=== PATIENT | male | born 1950 | race Caucasian/White ===

== ENCOUNTER 2017-07-05 12:18 | Emergency (ER) | payer MEDICARE, BC ==
[2017-07-05 13:40] LABS: Hematocrit 47.7 % (42.0-52.0); Mean Platelet Volume 8.4 fL (7.4-10.4); Red Blood Cell (RBC) Count 4.86 mill/uL (4.70-6.10); White Blood Cell (WBC) Count 5.3 thou/uL (4.8-10.8)
[2017-07-05 14:00] LABS: ALT (SGPT) 48 U/L (8-55); AST (SGOT) 28 U/L (5-34); Alkaline Phosphatase 100 U/L (40-150); Anion Gap 8 mmol/L (10-20); BUN (Urea Nitrogen) 10 mg/dL (8.4-25.7); Band 4 % (5-11); Bilirubin, Total 0.8 mg/dL (0.2-1.2); Calc. Creatinine Clearance 0 mL/min (70-130); Calcium 9.6 mg/dL (7.8-10.44); Carbon Dioxide 32 mmol/L (23-31); Chloride 101 mmol/L (98-107); Estimated GFR-MDRD Greater than 90; Globulin 3.5 g/dL (2.4-3.5); Lipase 80 U/L (8-78); Neutrophil 26 % (42-75); Protein, Total 7.2 g/dL (5.8-8.1); Reactive Lymphocytes 15 % (0-10)
--- NOTE | 2017-07-05 14:31 | ULT ---
RIGHT UPPER QUADRANT ULTRASOUND: Date: 07/05/17 INDICATION: Pain. FINDINGS: There is fatty infiltration of the liver. There is layered sludge within the gallbladder. No sonographic Chacon's sign is reported. Common bile duct measures 6.5 mm. Visualized pancreas is unremarkable. Right kidney measures 12.6 x 6.3 x 6.7 cm. There is a suspected 8.0 cm cyst extending off of the ante rior margin of the inferior pole of the right kidney. No hydronephrosis is evident. IMPRESSION: 1. Fatty liver. 2. Gallbladder sludge without sonographic evidence of acute cholecystitis. 3. Suspected 8.0 cm inferior pole right renal cyst. POS: [facility]
== END 2017-07-05 14:39 | disposition home or self-care (01) ==
LOC: ERS 12:18
DX: K85.90 Acute pancreatitis without necrosis or infection, unspecified (principal); E11.9 Type 2 diabetes mellitus without complications; F17.210 Nicotine dependence, cigarettes, uncomplicated; Z79.84 Long term (current) use of oral hypoglycemic drugs; Z79.899 Other long term (current) drug therapy
CPT/HCPCS: 36415; 76705; 80053; 83690; 85025

== ENCOUNTER 2019-02-04 11:34 | Outpatient (CLI) | payer MEDICARE, BC ==
[2019-02-04] MEDS ORDERED: Iopamidol 370 76% 100 ML VIAL ONE (13:45)
--- NOTE | 2019-02-04 13:48 | CT ---
CT ABDOMEN AND PELVIS WITH CONTRAST: 02/04/19 HISTORY: Periumbilical abdominal pain. History of pancreatitis. COMPARISON: None. FINDINGS: Lung bases are clear. No pericardial effusion. Exam is limited due to extensive motion. There is a very heterogeneous micronodular appearance of the liver with numerous indwelling calcifications. There are calcifications of the spleen. Multiple renal hypodensities measure greater than fluid attenuation not definitively a cyst. Small fa t containing paraumbilical hernia. Mild diverticular disease of the descending colon without active current inflammation. No dilated lo ops of large or small bowel. Some faint peripancreatic inflammation around the pancreatic head which is slightly bulbous. No defin ite mass is appreciated. Celiac trunk and superior mesenteric arteries are patent as well as the splenic vein. Bilateral pars interarticularis defects at L5 with grade I/II anterolisthesis. No significant retroperitoneal or per iaortic adenopathy. Gallbladder is unremarkable. IMPRESSION: 1. Low grade edema around the pancreatic head suggests acute pancreatitis. There is mild edema of the pancreatic head which is somewhat bulbous. No definite mass. 2. Multiple renal hypodensities although greater than fluid attenuation not definitely cysts. Fo llow-up renal ultrasound in 3 to 6 months is recommended. 3. Mild diverticular disease of the descending colon without active current inflammation. 4. Heterogeneous enhancement of the liver without a nodular appearance. The internal enhancement does have a picture of cirrhosis. Work up recommended. 5. Bilateral pars interarticularis defects of L5 with grade I/II anterolisthesis. 6. Small fat containing periumbilical hernia. POS: [facility]
== END 2019-02-04 11:35 | disposition home or self-care (01) ==
LOC: CT 11:34
PROVIDERS: ATTEND Physician Assistant Medical
DX: R10.33 Periumbilical pain (principal); R19.4 Change in bowel habit; R60.0 Localized edema; M43.16 Spondylolisthesis, lumbar region; K42.9 Umbilical hernia without obstruction or gangrene; K57.30 Diverticulosis of large intestine without perforation or abscess without bleeding; N28.89 Other specified disorders of kidney and ureter
CPT/HCPCS: 36415; 74177; 80053; 82150; 83690; 85025; Q9967

== ENCOUNTER 2019-04-27 07:27 | Day surgery (SDC) | payer MEDICARE, BC ==
[2019-04-24 15:30] VITALS: BMI 28.0
[2019-04-27 07:46] LABS: Hemoglobin 16.2 g/dL (14.0-18.0); Mean Corpuscular HGB CONC 35.2 g/dL (32.0-36.0); Mean Corpuscular Hemoglobin 32.8 pg (27.0-31.0); Mean Platelet Volume 9.2 fL (7.4-10.4); Platelet Count 114 thou/uL (130-400); RBC Distribution Width 12.6 % (11.5-14.5); Red Blood Cell (RBC) Count 4.95 mill/uL (4.70-6.10); White Blood Cell (WBC) Count 6.1 thou/uL (4.8-10.8)
[2019-04-27 07:49] LABS: INR-International Normal Ratio 1.3; Prothrombin Time 16.4 SEC (12.0-14.7)
[2019-04-27 08:34] LABS: Band 3 % (5-11); Eosinophils 5 % (0-10); Lymphocytes 60 % (21-51); MDiff Complete? YES; Monocytes 3 % (0-10); Neutrophil 19 % (42-75); Nucleated RBC 1 % (0); Platelet Morphology Comment Appears Decreased; RBC Morphology Normal; Reactive Lymphocytes 10 % (0-10)
[2019-04-27 08:50] VITALS: BP 140/78; TEMP 97.5
[2019-04-27] MEDS ORDERED: Fentanyl 100 MCG/2 ML VIAL ONE (09:00)
[2019-04-27] MEDS ORDERED: Midazolam HCl 2 mg/2 ml Vial ONE (09:00)
[2019-04-27] MEDS ORDERED: Sodium Bicarbonate 2.5 MEQ/5 ML VIAL ONE (09:00)
--- NOTE | 2019-04-27 13:51 | ULT ---
EXAM: US Hepatic Bx PROVIDED CLINICAL HISTORY: Cirrhosis, elevated liver function tests. COMPARISON: None TECHNIQUE: The procedure including the risks and complications were explained to the patient, and informed conse nt was obtained. Patient was placed on the sonography table in the supine position. Limited sonographic evaluation of the liver was performed. An area overlying the midline upper abdomen was ma rked, and the area was meticulously prepped and draped in usual sterile fashion. Conscious sedation was performed with the intravenous administration of 50 mcg of fentanyl and 1 mg of Versed. The patie nt was monitored throughout the procedure for approximately 30 minutes without complication. The epigastric region was meticulously prepped and draped in usual sterile fashion. The skin and subc utaneous tissues were infiltrated with buffered 1% lidocaine for local anesthesia. A small skin incision was made. Utilizing concurrent real time ultrasound guidance, a 17-gauge guide needle was ad vanced into the most peripheral aspect of the left hepatic lobe. Utilizing coaxial technique, a single 18-gauge core needle biopsy specimen was obtained. The inner stylette was removed. Specimen wa s collected. The introducer needle was then removed, hemostasis was achieved with direct pressure. Direct pressure was applied for approximately 10 minutes. Follow-up imaging demonstrates no perihepat ic fluid or findings to suggest a hematoma at biopsy site. Patient's vital signs remained stable during the procedure as well as postprocedure. A dry sterile dr essing was placed at puncture site. Patient was transported to radiology nurses holding area for further monitoring prior to discharge. IMPRESSION: 1. Increased echogenicity of the liver suggesting diffuse fatty infiltration. 2. Technically successful ultrasound-guided random left hepatic lobe biopsy. Pathology is currently p ending.
== END 2019-04-27 13:00 | disposition home or self-care (01) ==
LOC: ULT 07:27
PROVIDERS: ATTEND Physician Assistant Medical
DX: K74.60 Unspecified cirrhosis of liver (principal); K73.9 Chronic hepatitis, unspecified; K76.0 Fatty (change of) liver, not elsewhere classified; E11.9 Type 2 diabetes mellitus without complications; Z79.84 Long term (current) use of oral hypoglycemic drugs; Z79.899 Other long term (current) drug therapy; Z87.891 Personal history of nicotine dependence
CPT/HCPCS: 36415; 47000; 76942; 85025; 85610; 85730; 88307; 88313; J2250; J3010

== ENCOUNTER 2019-06-24 07:29 | Outpatient (CLI) | payer MEDICARE, BC ==
--- NOTE | 2019-06-24 14:40 | CT ---
CT PULMONARY LUNG SCAN: HISTORY: Nicotine abuse. A 40 year smoker who quit 8 years ago. FINDINGS: The lungs are clear of any infiltrative process. There is a calcified granuloma within the lingula. N o suspicious nodules identified. No significant mediastinal adenopathy is appreciated. Some mild coronary calcifications are present. No significant axillary adenopathy. There are calcified hilar lymph nodes seen. The visualized liver parenchyma shows no focal findings. IMPRESSION: 1. Lung-RADS category 1 - negative. Annual screening followup recommended. 2. Lung-RADS category S - this subcategory is given for the presence of coronary calcifications. POS: [facility]
--- NOTE | 2019-06-25 08:17 | ULT ---
Ultrasound of the abdominal aorta INDICATION: Screening evaluation for abdominal aortic aneurysm FINDINGS: Proximal abdominal aorta: Patent: AP diameter is 2.5 cm. Mediolateral diameter is 2.7 cm. Mid abdominal aorta: Patent. AP diameter of is 1.85 cm. Mediolateral diameter is 2.2 cm. Distal abdominal aorta: Patent. AP diameter is 1.7 cm. The mediolateral diameters 1.8 cm. Left common iliac artery: Patent. AP diameter is 1.3 cm. Right common iliac artery: Patent. AP diameter is 1.2 cm. 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 Mild ectasia of the left and right common iliac artery.
== END 2019-06-24 07:30 | disposition home or self-care (01) ==
LOC: ULT 07:29
PROVIDERS: ATTEND Family Medicine
DX: Z13.6 Encounter for screening for cardiovascular disorders (principal); Z87.891 Personal history of nicotine dependence; I25.10 Atherosclerotic heart disease of native coronary artery without angina pectoris; I77.811 Abdominal aortic ectasia; I77.89 Other specified disorders of arteries and arterioles
CPT/HCPCS: 76775; G0297

== ENCOUNTER 2019-12-08 09:31 | Outpatient (CLI) | payer MEDICARE, BC ==
--- NOTE | 2019-12-08 11:52 | MRI ---
MRI ABDOMEN WITH AND WITHOUT IV CONTRAST: Date: 12/08/2019 HISTORY: Cirrhosis of liver, hemochromatosis. FINDINGS: The liver, spleen, pancreas, adrenal glands, and gallbladder are normal. No abnormal biliary or pancr eatic ductal dilatation is seen. There are bilateral renal cysts, the largest on the right measuring 8.2 cm and on the left measuring 4.3 cm. No abnormal postcontrast enhancement is seen. No free fluid or lymphadenopathy is identified. There is no evidence of aneurysmal dilatation of the abdominal aorta. Bone marrow signal is normal. IMPRESSION: 1. No evidence of hepatic mass. 2. Bilateral renal cysts. POS: [facility]
== END 2019-12-08 09:32 | disposition home or self-care (01) ==
LOC: SCSMRI 09:31
PROVIDERS: ATTEND Internal Medicine Gastroenterology
DX: K74.60 Unspecified cirrhosis of liver (principal); E83.119 Hemochromatosis, unspecified; N28.1 Cyst of kidney, acquired
CPT/HCPCS: 74183; 82565

== ENCOUNTER 2020-09-28 10:52 | Outpatient (CLI) | payer MEDICARE, BC | END 2020-09-28 10:53 | disposition home or self-care (01) | LOC: BICCT 10:52 | PROVIDERS: ATTEND Family Medicine | DX: Z12.2 Encounter for screening for malignant neoplasm of respiratory organs (principal); Z87.891 Personal history of nicotine dependence | CPT/HCPCS: 71271 ==

== ENCOUNTER 2022-04-21 16:31 | Observation (INO) | payer MEDICARE, BC ==
[~2022-04-21 16:31] MED LIST: Iopamidol-370 76% 500 ML 1 ML ONE
[2022-04-21 17:23] LABS: #Eosinphils 0.1 thou/uL (0.0-0.7); #Lymphocytes 2.5 thou/uL (1.20-3.40); #Monocytes 0.7 thou/uL (0.11-0.59); #Neutrophils 3.1 thou/uL (1.40-6.50); %Basophils 0.7 % (0.0-1.0); %Lymphocytes 38.7 % (21.0-51.0); %Monocytes 10.8 % (0.0-10.0); %Neutrophils 47.8 % (42.0-75.0); Hemoglobin 16.1 g/dL (14.0-18.0); Mean Corpuscular HGB CONC 32.2 g/dL (32.0-36.0); Mean Corpuscular Hemoglobin 31.9 pg (27.0-31.0); Mean Corpuscular Volume 98.9 fL (78.0-98.0); Platelet Count 132 thou/uL (130-400); RBC Distribution Width 12.7 % (11.5-14.5); Red Blood Cell (RBC) Count 5.05 mill/uL (4.70-6.10); White Blood Cell (WBC) Count 6.5 thou/uL (4.8-10.8)
[2022-04-21 17:30] LABS: INR-International Normal Ratio 1.3; PTT 35.8 sec (22.9-36.1); Prothrombin Time 16.1 sec (12.0-14.7)
[2022-04-21 17:46] LABS: ALT (SGPT) 21 U/L (8-55); AST (SGOT) 23 U/L (5-34); Albumin 4.2 g/dL (3.4-4.8); Alkaline Phosphatase 68 U/L (40-110); Anion Gap 13 mmol/L (10-20); BUN (Urea Nitrogen) 19 mg/dL (8.4-25.7); Bilirubin, Total 0.8 mg/dL (0.2-1.2); Calc. Creatinine Clearance 0 mL/min (70-130); Calcium 9.8 mg/dL (7.8-10.44); Carbon Dioxide 26 mmol/L (23-31); Chloride 101 mmol/L (98-107); Estimated GFR 93; Globulin 3.7 g/dL (2.4-3.5); Glucose 157 mg/dL (83-110); Potassium 4.3 mmol/L (3.5-5.1); Protein, Total 7.9 g/dL (5.8-8.1); Sodium 136 mmol/L (136-145)
[2022-04-21] MEDS ORDERED: Tranexamic Acid 1,000 MG in Sodium Chloride 0.9% 100 ML IVPB SCH (19:15)
[2022-04-21] MEDS ORDERED: Ondansetron PF 4 MG/2 ML Vial ONE (19:24)
[2022-04-21] MEDS ORDERED: Tranexamic Acid 1,000 MG/10 ML VIAL ONE (19:40)
[2022-04-21] MEDS ORDERED: Acetaminophen 325 MG TAB PO PRN (19:44)
[2022-04-21] MEDS ORDERED: Ondansetron PF 4 MG/2 ML Vial IVP PRN (19:44)
[2022-04-21] MEDS ORDERED: Dextrose 5% in Water 1,000 ML IV PRN (19:48)
[2022-04-21] MEDS ORDERED: HumaLOG 300 UNITS/3 ML VIAL SC PRN (19:48)
[2022-04-21] MEDS ORDERED: Dextrose 50% Abboject 50 ML SYRINGE SLOW IVP PRN (19:48)
[2022-04-21 22:38] VITALS: BMI 25.5
[2022-04-21] MEDS ORDERED: Zolpidem Tartrate 5 MG TAB PO PRN (22:56)
[2022-04-21 23:44] LABS: SARS-CoV-2 NAA Rapid Test Not Detected (NotDetected)
[2022-04-22 06:18] LABS: #Eosinphils 0.1 thou/uL (0.0-0.7); #Lymphocytes 2.5 thou/uL (1.20-3.40); #Monocytes 0.7 thou/uL (0.11-0.59); #Neutrophils 2.2 thou/uL (1.40-6.50); %Basophils 0.6 % (0.0-1.0); %Eosinophils 2.5 % (0.0-10.0); %Lymphocytes 45.7 % (21.0-51.0); %Monocytes 12.4 % (0.0-10.0); %Neutrophils 38.9 % (42.0-75.0); Hemoglobin 13.9 g/dL (14.0-18.0); Mean Corpuscular Hemoglobin 31.6 pg (27.0-31.0); Mean Corpuscular Volume 98.7 fL (78.0-98.0); Mean Platelet Volume 9.2 fL (7.4-10.4); Platelet Count 125 thou/uL (130-400); RBC Distribution Width 12.5 % (11.5-14.5); Red Blood Cell (RBC) Count 4.39 mill/uL (4.70-6.10); White Blood Cell (WBC) Count 5.6 thou/uL (4.8-10.8)
[2022-04-22 06:40] LABS: Anion Gap 11 mmol/L (10-20); BUN (Urea Nitrogen) 16 mg/dL (8.4-25.7); Calc. Creatinine Clearance 109 mL/min (70-130); Carbon Dioxide 25 mmol/L (23-31); Chloride 104 mmol/L (98-107); Estimated GFR 95; Glucose 103 mg/dL (83-110); Sodium 136 mmol/L (136-145)
[2022-04-22] MEDS: HumaLOG 300 UNITS/3 ML VIAL SC PRN (19:22)
[2022-04-23 05:54] LABS: #Eosinphils 0.2 thou/uL (0.0-0.7); #Lymphocytes 2.6 thou/uL (1.20-3.40); #Neutrophils 3.4 thou/uL (1.40-6.50); %Basophils 0.6 % (0.0-1.0); %Eosinophils 2.4 % (0.0-10.0); %Lymphocytes 36.4 % (21.0-51.0); %Monocytes 13.4 % (0.0-10.0); %Neutrophils 47.2 % (42.0-75.0); Hemoglobin 15.2 g/dL (14.0-18.0); Mean Corpuscular HGB CONC 32.2 g/dL (32.0-36.0); Mean Corpuscular Hemoglobin 31.7 pg (27.0-31.0); Mean Corpuscular Volume 98.5 fL (78.0-98.0); Mean Platelet Volume 8.7 fL (7.4-10.4); Platelet Count 132 thou/uL (130-400); RBC Distribution Width 12.4 % (11.5-14.5); Red Blood Cell (RBC) Count 4.78 mill/uL (4.70-6.10); White Blood Cell (WBC) Count 7.1 thou/uL (4.8-10.8)
[2022-04-23 06:14] LABS: Anion Gap 12 mmol/L (10-20); BUN (Urea Nitrogen) 16 mg/dL (8.4-25.7); Calc. Creatinine Clearance 104 mL/min (70-130); Calcium 9.5 mg/dL (7.8-10.44); Carbon Dioxide 25 mmol/L (23-31); Chloride 102 mmol/L (98-107); Estimated GFR 94; Glucose 141 mg/dL (83-110); Potassium 4.1 mmol/L (3.5-5.1); Sodium 135 mmol/L (136-145)
[2022-04-23] MEDS: HumaLOG 300 UNITS/3 ML VIAL SC PRN ×2 (06:20→11:55)
[2022-04-23 12:30] VITALS: BP 131/82; TEMP 98.2
[2022-04-23] MEDS ORDERED: FLU VACC QS2022-23(6MOS UP)/PF 60 MCG/0.5 ML SYRINGE IM ONE (23:45)
== END 2022-04-23 11:55 | disposition home or self-care (01) ==
LOC: ERS 16:31 → SURG B 19:38
PROVIDERS: ADMIT Internal Medicine; ATTEND Internal Medicine
DX: J35.8 Other chronic diseases of tonsils and adenoids (principal); E11.9 Type 2 diabetes mellitus without complications; R59.0 Localized enlarged lymph nodes; Z87.891 Personal history of nicotine dependence; Z79.84 Long term (current) use of oral hypoglycemic drugs; Z79.899 Other long term (current) drug therapy; Z20.822 Contact with and (suspected) exposure to COVID-19
CPT/HCPCS: 70491; 80048 ×2; 80053; 82962 ×2; 83735; 84484; 85025 ×3; 85610; 85730; 86850; 86900; 86901; 93005; 96374; 96375; 99285; G0378 ×3; U0002; 36415; 36416; J1815; J2405; Q9967

== ENCOUNTER 2022-05-07 09:59 | Outpatient (CLI) | payer MEDICARE, BC ==
[2022-05-07 12:23] LABS: Hemoglobin 14.7 g/dL (13.5-17.5)
[2022-05-07 12:34] LABS: Anion Gap 16 mmol/L (10-20); BUN (Urea Nitrogen) 21 mg/dL (8.4-25.7); Calc. Creatinine Clearance 0 mL/min (70-130); Calcium 9.4 mg/dL (7.8-10.44); Carbon Dioxide 23 mmol/L (23-31); Chloride 101 mmol/L (98-107); Estimated GFR 93; Glucose 294 mg/dL (83-110); Sodium 136 mmol/L (136-145)
== END 2022-05-07 10:00 | disposition home or self-care (01) ==
LOC: LABBT 09:59
PROVIDERS: ATTEND Specialist
DX: Z01.818 Encounter for other preprocedural examination (principal); J35.8 Other chronic diseases of tonsils and adenoids
CPT/HCPCS: 80048; 85014; 85018; 93005; 93010

== ENCOUNTER 2022-05-10 06:16 | Day surgery (SDC) | payer MEDICARE, BC ==
[2022-05-09 08:58] VITALS: BMI 26.4
[2022-05-10] MEDS ORDERED: Ketamine 50 MG/ML (10ML VIAL) ONE (08:15)
[2022-05-10] MEDS ORDERED: fentaNYL Citrate/PF 100 MCG/2 ML SYRINGE ONE (08:15)
[2022-05-10] MEDS ORDERED: SUGAMMADEX SODIUM 200 MG/2 ML VIAL ONE (08:21)
[2022-05-10] MEDS ORDERED: Esmolol 100 MG/10 ML VIAL ONE (08:30)
[2022-05-10] MEDS ORDERED: Ondansetron PF 4 MG/2 ML Vial ONE (08:30)
[2022-05-10] MEDS ORDERED: Glycopyrrolate 0.2 MG/ML 5 ML SYRINGE ONE (08:30)
[2022-05-10] MEDS ORDERED: Rocuronium Bromide 10 MG/ML (10ML VIAL) ONE (08:30)
[2022-05-10] MEDS ORDERED: Dexamethasone 20 MG/5 ML VIAL ONE (08:30)
[2022-05-10] MEDS ORDERED: PROPOFOL 200 MG/20 ML VIAL ONE (08:30)
[2022-05-10] MEDS ORDERED: EPINEPHrine 1 MG/ML AMP ONE (08:33)
[2022-05-10] MEDS ORDERED: Ferric Subsulfate (ASTRINGYN) 8 GM VIAL ONE (08:48)
[2022-05-10] MEDS ORDERED: Hydrocodone-Acetamin 15 ML UDCUP ONE (09:45)
[2022-05-10] MEDS ORDERED: Morphine 2 MG/ML VIAL ONE (09:50)
== END 2022-05-10 11:00 | disposition home or self-care (01) ==
LOC: SDC 06:16
PROVIDERS: ATTEND Specialist
PROC: 0CTPXZZ Resection of Tonsils, External Approach (ICD-10-PCS; principal; 2022-05-10)
PROC: 0W963ZX Drainage of Neck, Percutaneous Approach, Diagnostic (ICD-10-PCS; 2022-05-10)
PROC: 0CJS8ZZ Inspection of Larynx, Via Natural or Artificial Opening Endoscopic (ICD-10-PCS; 2022-05-10)
DX: C09.9 Malignant neoplasm of tonsil, unspecified (principal); E11.9 Type 2 diabetes mellitus without complications; Z87.891 Personal history of nicotine dependence; Z79.84 Long term (current) use of oral hypoglycemic drugs; Z79.899 Other long term (current) drug therapy
CPT/HCPCS: 10021; 31526; 42826; 82962; J2270; 36416; 88173; 88305; 88341; 88342; J0171; J1100; J2405; J2704

== ENCOUNTER 2022-05-25 08:00 | Outpatient (CLI) | payer MEDICARE, BC | END 2022-05-25 08:01 | disposition home or self-care (01) | LOC: PET 08:00 | PROVIDERS: ATTEND Radiology Radiation Oncology | DX: C09.9 Malignant neoplasm of tonsil, unspecified (principal); C77.0 Secondary and unspecified malignant neoplasm of lymph nodes of head, face and neck; C77.2 Secondary and unspecified malignant neoplasm of intra-abdominal lymph nodes; C78.7 Secondary malignant neoplasm of liver and intrahepatic bile duct; C79.51 Secondary malignant neoplasm of bone | CPT/HCPCS: 78815; A9552 ==

== ENCOUNTER 2022-06-30 12:10 | Emergency (ER) | payer MEDICARE, BC | END 2022-06-30 12:48 | disposition home or self-care (01) | LOC: ERS 12:10 | DX: I10 Essential (primary) hypertension (principal) | CPT/HCPCS: 99281 ==

== ENCOUNTER 2023-03-08 12:29 | Emergency (ER) | payer MEDICARE, BC ==
[~2023-03-08 12:29] MED LIST changes: -Iopamidol-370 76% 500 ML 1 ML ONE; +Iopamidol-370 76% 500 ML MDV (1 ML CHARGE) ONE
[2023-03-08] MEDS ORDERED: Ondansetron PF 4 MG/2 ML Vial ONE (13:49)
[2023-03-08 13:51] LABS: #Eosinphils 0.2 thou/uL (0.0-0.7); #Monocytes 0.7 thou/uL (0.11-0.59); %Basophils 0.6 % (0.0-1.0); %Lymphocytes 19.9 % (21.0-51.0); %Neutrophils 60.9 % (42.0-75.0); Hematocrit 39.6 % (42.0-52.0); Hemoglobin 12.9 g/dL (14.0-18.0); Mean Corpuscular HGB CONC 32.6 g/dL (32.0-36.0); Mean Corpuscular Hemoglobin 32.2 pg (27.0-31.0); Mean Corpuscular Volume 98.8 fl (78.0-98.0); Mean Platelet Volume 10.4 fL (7.4-10.4); Platelet Count 150 10x3/uL (130-400); RBC Distribution Width 14.6 % (11.5-14.5); Red Blood Cell (RBC) Count 4.01 mill/uL (4.70-6.10); White Blood Cell (WBC) Count 4.9 10x3/uL (4.8-10.8)
[2023-03-08 14:13] LABS: ALT (SGPT) 93 U/L (8-55); AST (SGOT) 81 U/L (5-34); Alkaline Phosphatase 720 U/L (40-110); Anion Gap 12 mmol/L (10-20); BUN (Urea Nitrogen) 18 mg/dL (8.4-25.7); Bilirubin, Total 0.6 mg/dL (0.2-1.2); Calc. Creatinine Clearance 0 mL/min (70-130); Calcium 9.7 mg/dL (7.8-10.44); Carbon Dioxide 31 mmol/L (23-31); Chloride 97 mmol/L (98-107); Estimated GFR 98; Globulin 4.7 g/dL (2.4-3.5); Glucose 235 mg/dL (83-110); Potassium 4.7 mmol/L (3.5-5.1); Protein, Total 7.7 g/dL (5.8-8.1); Sodium 135 mmol/L (136-145)
[2023-03-08 14:17] LABS: Troponin I Less than 0.010 ng/mL (< 0.028)
== END 2023-03-08 16:26 | disposition home or self-care (01) ==
LOC: ERS 12:29
DX: I71.9 Aortic aneurysm of unspecified site, without rupture (principal); C79.49 Secondary malignant neoplasm of other parts of nervous system; R94.5 Abnormal results of liver function studies; C14.0 Malignant neoplasm of pharynx, unspecified; E11.9 Type 2 diabetes mellitus without complications; Z87.891 Personal history of nicotine dependence; Z79.4 Long term (current) use of insulin; Z79.899 Other long term (current) drug therapy
CPT/HCPCS: 36415; 71045; 71275; 74174; 80053; 84484; 85025; 93005; 96374; J2405; Q9967

== ENCOUNTER 2023-03-27 09:26 | Emergency (ER) | payer MEDICARE, BC ==
[2023-03-27 11:31] LABS: #Eosinphils 0.1 thou/uL (0.0-0.7); #Monocytes 0.9 thou/uL (0.11-0.59); #Neutrophils 4.7 thou/uL (1.40-6.50); %Basophils 0.6 % (0.0-1.0); %Eosinophils 0.9 % (0.0-10.0); %Lymphocytes 11.3 % (21.0-51.0); %Monocytes 13.3 % (0.0-10.0); %Neutrophils 70.7 % (42.0-75.0); Hemoglobin 12.3 g/dL (14.0-18.0); Mean Corpuscular HGB CONC 32.4 g/dL (32.0-36.0); Mean Corpuscular Hemoglobin 32.5 pg (27.0-31.0); Mean Corpuscular Volume 100.3 fl (78.0-98.0); Mean Platelet Volume 10.9 fL (7.4-10.4); Platelet Count 144 10x3/uL (130-400); RBC Distribution Width 15.7 % (11.5-14.5); Red Blood Cell (RBC) Count 3.79 mill/uL (4.70-6.10); White Blood Cell (WBC) Count 6.6 10x3/uL (4.8-10.8)
[2023-03-27 11:57] LABS: ALT (SGPT) 112 U/L (8-55); AST (SGOT) 104 U/L (5-34); Alkaline Phosphatase 911 U/L (40-110); Anion Gap 14 mmol/L (10-20); BUN (Urea Nitrogen) 23 mg/dL (8.4-25.7); Bilirubin, Total 1.3 mg/dL (0.2-1.2); Calc. Creatinine Clearance 0 mL/min (70-130); Calcium 9.3 mg/dL (7.8-10.44); Carbon Dioxide 25 mmol/L (23-31); Chloride 96 mmol/L (98-107); Estimated GFR 97; Globulin 4.5 g/dL (2.4-3.5); Glucose 242 mg/dL (83-110); Potassium 4.6 mmol/L (3.5-5.1); Protein, Total 7.5 g/dL (5.8-8.1); Sodium 130 mmol/L (136-145)
[2023-03-27 12:51] LABS: Troponin I Less than 0.010 ng/mL (< 0.028)
[2023-03-27 15:12] LABS: Bacteria/HPF None Seen HPF (None Seen); Bilirubin Negative (Negative); Blood, Urine Negative (Negative); CAUTI Indications for Culture Dysuria,urgency,freq; Clarity Clear (Clear); Glucose, Urine (Dipstick) 30 mg/dL (Negative); Ketone, Urine Negative (Negative); Leukocyte Negative Leu/uL (Negative); Nitrite Negative (Negative); Protein, Urine (Dipstick) 10 mg/dL (Neg-Trace); RBC/HPF 0-3 HPF (0-3); Specific Gravity, Urine 1.012 (1.002-1.036); Squamous Epithelial None Seen HPF (0-3); Urobilinogen Normal mg/dL (Less than 2); WBC/HPF 0-3 HPF (0-3)
[2023-03-27 15:13] LABS: Urine Culture Reflex No No
== END 2023-03-27 15:30 | disposition home or self-care (01) ==
LOC: ERS 09:26
DX: I95.1 Orthostatic hypotension (principal); E11.9 Type 2 diabetes mellitus without complications
CPT/HCPCS: 36415; 80053; 81001; 84484; 85025; 93005

== ENCOUNTER 2023-03-28 09:31 | Inpatient (IN) | payer MEDICARE, BC ==
[2023-03-28] MEDS ORDERED: Iopamidol-370 76% 500 ML MDV (1 ML CHARGE) ONE (09:58)
[2023-03-28 10:38] LABS: #Eosinphils 0.1 thou/uL (0.0-0.7); #Monocytes 0.6 thou/uL (0.11-0.59); #Neutrophils 3.3 thou/uL (1.40-6.50); %Basophils 0.8 % (0.0-1.0); %Eosinophils 1.4 % (0.0-10.0); %Lymphocytes 15.5 % (21.0-51.0); %Monocytes 12.8 % (0.0-10.0); %Neutrophils 67.4 % (42.0-75.0); Hematocrit 37.9 % (42.0-52.0); Hemoglobin 12.6 g/dL (14.0-18.0); Mean Corpuscular HGB CONC 33.2 g/dL (32.0-36.0); Mean Corpuscular Hemoglobin 32.6 pg (27.0-31.0); Mean Corpuscular Volume 98.2 fl (78.0-98.0); Mean Platelet Volume 11.2 fL (7.4-10.4); Platelet Count 141 10x3/uL (130-400); RBC Distribution Width 15.7 % (11.5-14.5); Red Blood Cell (RBC) Count 3.86 mill/uL (4.70-6.10); White Blood Cell (WBC) Count 4.8 10x3/uL (4.8-10.8)
[2023-03-28 11:01] LABS: ALT (SGPT) 111 U/L (8-55); AST (SGOT) 116 U/L (5-34); Albumin 2.9 g/dL (3.4-4.8); Alkaline Phosphatase 933 U/L (40-110); Anion Gap 12 mmol/L (10-20); BUN (Urea Nitrogen) 20 mg/dL (8.4-25.7); Bilirubin, Total 1.8 mg/dL (0.2-1.2); Calc. Creatinine Clearance 0 mL/min (70-130); Calcium 9.2 mg/dL (7.8-10.44); Carbon Dioxide 29 mmol/L (23-31); Chloride 98 mmol/L (98-107); Estimated GFR 98; Globulin 4.5 g/dL (2.4-3.5); Glucose 233 mg/dL (83-110); Lipase 18 U/L (8-78); Magnesium 1.9 mg/dL (1.6-2.6); Potassium 4.2 mmol/L (3.5-5.1); Protein, Total 7.4 g/dL (5.8-8.1); Sodium 135 mmol/L (136-145)
[2023-03-28 12:45] LABS: Troponin I Less than 0.010 ng/mL (< 0.028)
[2023-03-28 14:02] LABS: Lactic Acid 1.5 mmol/L (0.5-2.2)
[2023-03-28 17:44] VITALS: BMI 21.7
[2023-03-28] MEDS: Dextrose 5 % And 0.9 % NaCl 1,000 ML IV SCH (17:50)
[2023-03-28] MEDS ORDERED: HumaLOG 300 UNITS/3 ML VIAL SC PRN (18:45)
[2023-03-28] MEDS ORDERED: TETANUS, DIPHTHERIA TOX,ADULT (TDVAX) 0.5 ML VIAL IM ONE (18:45)
[2023-03-28] MEDS ORDERED: Ondansetron PF 4 MG/2 ML Vial IVP PRN (18:45)
[2023-03-28] MEDS ORDERED: Glucagon 1 MG/ML KIT IM PRN (18:45)
[2023-03-28] MEDS ORDERED: hydrALAZINE 20 MG/ML VIAL SLOW IVP PRN (18:45)
[2023-03-28] MEDS ORDERED: traMADol HCl 50 MG TAB PO PRN (18:45)
[2023-03-28] MEDS ORDERED: Dextrose 50% Abboject 50 ML SYRINGE SLOW IVP PRN (18:45)
[2023-03-28] MEDS ORDERED: Dextrose 5% in Water 1,000 ML IV PRN (18:45)
[2023-03-28] MEDS ORDERED: Sodium Chloride 0.9% 1,000 ML IV SCH (18:45)
[2023-03-28] MEDS ORDERED: Ipratropium/Albuterol 3 ML NEB NEB PRN (18:45)
[2023-03-28] MEDS ORDERED: Morphine 2 MG/ML VIAL SLOW IVP PRN (18:45)
[2023-03-28] MEDS ORDERED: Piperacillin/Tazobactam 3.375 GM in Sodium Chloride 0.9% 100 ML IVPB SCH (19:15)
[2023-03-28] MEDS: Acetaminophen 325 MG TAB PO SCH ×2 (19:43→23:29)
[2023-03-28] MEDS: Famotidine/PF 20 mg/2ml Vial SLOW IVP SCH (20:44)
[2023-03-28] MEDS ORDERED: Bupivacaine 0.25% HCL 30 ML VIAL ONE (20:46)
[2023-03-28] MEDS ORDERED: EPINEPHrine 1 MG/ML AMP ONE (20:46)
[2023-03-28] MEDS ORDERED: fentaNYL PF 100 MCG/2 ML SYRINGE ONE (21:54)
[2023-03-28] MEDS ORDERED: Dexmedetomidine 200 MCG/2 ML VIAL ONE (21:55)
[2023-03-28] MEDS ORDERED: Ketamine 50 MG/ML (10ML VIAL) ONE (21:55)
[2023-03-28] MEDS ORDERED: Dexamethasone 20 MG/5 ML VIAL ONE (22:16)
[2023-03-28] MEDS ORDERED: ePHEDrine Sulfate 50 MG/10 ML VIAL ONE (22:16)
[2023-03-28] MEDS ORDERED: Ondansetron PF 4 MG/2 ML Vial ONE (22:16)
[2023-03-28] MEDS ORDERED: PHENYLEPHRINE-NS 100 MCG/ML 10 ML SYRINGE ONE (22:16)
[2023-03-28] MEDS ORDERED: Lidocaine 1% PF 5 ML VIAL ONE (22:16)
[2023-03-28] MEDS ORDERED: Rocuronium Bromide 10 MG/ML (10ML VIAL) ONE (22:16)
[2023-03-28] MEDS ORDERED: PROPOFOL 200 MG/20 ML VIAL ONE (22:16)
[2023-03-28] MEDS ORDERED: NEOSTIGMINE 3 MG/3 ML SYR 3 MG/3 ML SYRINGE ONE (22:16)
[2023-03-28] MEDS ORDERED: Glycopyrrolate 0.2 MG/ML 5 ML SYRINGE ONE (22:16)
[2023-03-28] MEDS: Piperacillin/Tazobactam 3.375 GM in Sodium Chloride 0.9% 100 ML IVPB SCH (23:28)
[2023-03-28] MEDS ORDERED: Promethazine HCl 25 MG/ML VIAL IM PRN (23:49)
[2023-03-28] MEDS ORDERED: Ondansetron HCl/PF 4 MG/2 ML Vial IVP PRN (23:49)
[2023-03-28] MEDS ORDERED: HYDROmorphone 2 MG/ML VIAL SLOW IVP PRN (23:49)
[2023-03-28] MEDS ORDERED: PACU-Morphine 4MG/ML VIAL SLOW IVP PRN (23:49)
[2023-03-28] MEDS ORDERED: Morphine Sulfate 2 MG/ML SYRINGE SLOW IVP PRN (23:49)
[2023-03-28] MEDS ORDERED: fentaNYL 50 mcg/mL 1 mL Vial ONE (23:57)
[2023-03-29] MEDS ORDERED: Morphine 2 MG/ML VIAL SLOW IVP PRN (00:23)
[2023-03-29] MEDS: Piperacillin/Tazobactam 3.375 GM in Sodium Chloride 0.9% 100 ML IVPB SCH ×2 (00:31→08:39)
[2023-03-29] MEDS: Dextrose 5 % And 0.9 % NaCl 1,000 ML IV SCH ×3 (00:31→13:04)
[2023-03-29] MEDS ORDERED: Zolpidem Tartrate 5 MG TAB PO PRN (00:33)
[2023-03-29 03:41] LABS: Bacteria/HPF None Seen HPF (None Seen); Bilirubin Negative (Negative); Blood, Urine Negative (Negative); Clarity Clear (Clear); Glucose, Urine (Dipstick) Normal (Negative); Ketone, Urine Negative (Negative); Leukocyte Negative Leu/uL (Negative); Nitrite Negative (Negative); Protein, Urine (Dipstick) Negative (Neg-Trace); RBC/HPF 0-3 HPF (0-3); Specific Gravity, Urine 1.029 (1.002-1.036); Squamous Epithelial None Seen HPF (0-3); WBC/HPF 0-3 HPF (0-3)
[2023-03-29] MEDS: Acetaminophen 325 MG TAB PO SCH ×2 (05:32→13:05)
[2023-03-29 06:16] LABS: #Monocytes 0.5 thou/uL (0.11-0.59); #Neutrophils 7.5 thou/uL (1.40-6.50); %Basophils 0.2 % (0.0-1.0); %Lymphocytes 10.8 % (21.0-51.0); %Monocytes 5.5 % (0.0-10.0); %Neutrophils 82.6 % (42.0-75.0); Hematocrit 35.4 % (42.0-52.0); Hemoglobin 11.8 g/dL (14.0-18.0); Mean Corpuscular HGB CONC 33.3 g/dL (32.0-36.0); Mean Corpuscular Hemoglobin 32.7 pg (27.0-31.0); Mean Corpuscular Volume 98.1 fl (78.0-98.0); Mean Platelet Volume 10.9 fL (7.4-10.4); RBC Distribution Width 15.9 % (11.5-14.5); Red Blood Cell (RBC) Count 3.61 mill/uL (4.70-6.10)
[2023-03-29 06:17] LABS: Platelet Count 130 10x3/uL (130-400)
[2023-03-29 06:32] LABS: Anion Gap 10 mmol/L (10-20); BUN (Urea Nitrogen) 13 mg/dL (8.4-25.7); Calc. Creatinine Clearance 107 mL/min (70-130); Calcium 8.9 mg/dL (7.8-10.44); Carbon Dioxide 27 mmol/L (23-31); Chloride 103 mmol/L (98-107); Estimated GFR 101; Glucose 152 mg/dL (83-110); Potassium 3.8 mmol/L (3.5-5.1); Sodium 136 mmol/L (136-145)
[2023-03-29] MEDS: Famotidine/PF 20 mg/2ml Vial SLOW IVP SCH (08:37)
[2023-03-29 15:24] VITALS: BP 127/70; TEMP 98.2
[2023-03-29] MEDS ORDERED: Magnesium Oxide 400 MG TAB PO SCH (21:00)
== END 2023-03-29 16:45 | disposition home or self-care (01) | DRG 357 ==
LOC: ERS 09:31 → SURG A 15:24
PROVIDERS: ADMIT Student in an Organized Health Care Education/Training Program; ATTEND Student in an Organized Health Care Education/Training Program
PROC: 0DJW4ZZ Inspection of Peritoneum, Percutaneous Endoscopic Approach (ICD-10-PCS; principal; 2023-03-28)
DX: K66.8 Other specified disorders of peritoneum (principal); J98.11 Atelectasis; C76.0 Malignant neoplasm of head, face and neck; K74.60 Unspecified cirrhosis of liver; Z87.891 Personal history of nicotine dependence; Z79.4 Long term (current) use of insulin; Z79.899 Other long term (current) drug therapy
CPT/HCPCS: 36415; 36416; 71045; 74018; 74177; 80048; 80053; 81001; 83605; 83690; 83735; 83880; 84484; 85025; 93005; 96360; 96361; 96374; 96375; 96376; A4314; A4649; C1776; J0171; J1100; J1650; J1815; J2272; J2405; J2543; J2704; J3010; J3490; J7042; Q9967; S0020; S0028

== ENCOUNTER 2023-04-01 11:32 | Outpatient (CLI) | payer MEDICARE, BC | END 2023-04-01 11:33 | disposition home or self-care (01) | LOC: SCSMRI 11:32 | PROVIDERS: ATTEND Radiology Radiation Oncology | DX: C79.51 Secondary malignant neoplasm of bone (principal); M48.56XA Collapsed vertebra, not elsewhere classified, lumbar region, initial encounter for fracture; M48.54XA Collapsed vertebra, not elsewhere classified, thoracic region, initial encounter for fracture | CPT/HCPCS: 72157; 72158; 80053 ==